=== PATIENT | female | born 1935 | race Caucasian/White ===

== ENCOUNTER 2021-03-17 10:21 | Inpatient (IN) ==
[2021-03-17 16:15] LABS: Basophils # 0.1 K/mcL (0.0-0.2); Basophils % 0.9 %; Eosinophils # 0.1 K/mcL (0.0-0.6); Eosinophils % 1.7 %; Hematocrit 40.8 % (35.3-44.9); Hemoglobin 13.3 g/dL (11.5-15.4); Immature Granulocytes % 0.5 % (0-4); Lymphocytes # 1.4 K/mcL (0.6-4.6); Lymphocytes % 18.2 %; Mean Corpuscular HGB Conc 32.6 g/dL (31.6-35.5); Mean Corpuscular Hemoglobin 30.9 pg (28.0-33.3); Mean Corpuscular Volume 94.9 fL (83.0-100.0); Mean Platelet Volume 9.1 fL (9.4-12.4); Monocytes # 0.7 K/mcL (0.0-1.3); Monocytes % 9.1 %; Neutrophils # 5.3 K/mcL (1.6-8.9); Platelet Count 309 K/mcL (140-400); Red Cell Distribution Width 12.1 % (11.5-14.5); Segmented Neutrophils % 69.6 %; White Blood Count 7.6 K/mcL (4.3-11.1)
[2021-03-17 16:25] LABS: Alanine Aminotransferase 11 Units/L (7-52); Albumin/Globulin Ratio 1.2 (1.1-2.2); Alkaline Phosphatase 45 Units/L (34-104); Aspartate Amino Transferase 12 Units/L (13-39); BUN/Creatinine Ratio 15 (6-26); Bilirubin,Direct 0.1 mg/dL (0.0-0.2); Bilirubin,Indirect 0.4 mg/dL (0.0-1.0); Bilirubin,Total 0.5 mg/dL (0.3-1.0); Blood Urea Nitrogen 10 mg/dL (8-23); Calcium 9.4 mg/dL (8.6-10.3); Carbon Dioxide 29 mEq/L (23-29); Chloride 91 mEq/L (98-107); Globulin 3.3 g/dL (2.4-3.5); Glucose 171 mg/dL (70-105); Osmolality,Calculated 277 (280-300); Potassium 4.4 mEq/L (3.5-5.1); Sodium 132 mEq/L (136-145); Total Protein 7.3 g/dL (6.4-8.9); eGFR For African Americans > 60 (> 60); eGFR For Non-African Americans > 60 (> 60)
[2021-03-17 16:33] LABS: Troponin I < 0.03 ng/mL (< 0.04)
[2021-03-17 16:49] LABS: Lipase 15 Units/L (11-82)
[2021-03-17] MEDS ORDERED: Azithromycin 250 MG TABLET PO ONE (17:58)
[2021-03-17] MEDS ORDERED: cefTRIAXone 1,000 MG in Water for inj. (sterile) 10 ML IVP ONE (17:58)
[2021-03-17 18:43] LABS: Bacteria,Urine Moderate per hpf (None-Few); Bilirubin,Urine Negative (Negative); Blood,Urine Negative (Negative); Clarity,Urine Clear (Clear); Color,Urine Yellow (Yellow); Glucose,Urine (UA) Normal (Normal); Ketones,Urine 40 mg/dL (Negative); Leukocyte Esterase,Urine Negative (Negative); Mucus,Urine Few per lpf (None-Few); Nitrite,Urine Negative (Negative); Protein,Urine 30 mg/dL (Neg-Trace); RBC,Urine 0-3 per hpf (0-3); Specific Gravity,Urine 1.024 (1.010-1.025); Squamous Epithelial Cell,Urine Few per hpf (None-Few); Urobilinogen,Urine Normal (Normal); WBC,Urine 0-3 per hpf (0-3)
[2021-03-17] MEDS ORDERED: Furosemide 40 MG/4 ML VIAL IVP ONE (21:44)
[2021-03-17] MEDS ORDERED: Isovue-370 500 ML BOTTLE IVP ONE (23:09)
[2021-03-18] MEDS ORDERED: Naloxone 0.4 MG/ML INJ IVP PRN (00:02)
[2021-03-18] MEDS ORDERED: Ondansetron 4 MG/2 ML VIAL IVP PRN (02:09)
[2021-03-18] MEDS ORDERED: *HR* Metoprolol 5 MG/5 ML VIAL IVP ONE (02:35)
[2021-03-18 06:06] LABS: Hematocrit 39.7 % (35.3-44.9); Hemoglobin 13.2 g/dL (11.5-15.4); Mean Corpuscular HGB Conc 33.2 g/dL (31.6-35.5); Mean Corpuscular Hemoglobin 30.9 pg (28.0-33.3); Platelet Count 332 K/mcL (140-400); Red Blood Count 4.27 M/mcL (3.82-4.97); Red Cell Distribution Width 11.9 % (11.5-14.5); White Blood Count 8.1 K/mcL (4.3-11.1)
[2021-03-18 06:31] LABS: BUN/Creatinine Ratio 15 (6-26); Blood Urea Nitrogen 12 mg/dL (8-23); Calcium 9.4 mg/dL (8.6-10.3); Carbon Dioxide 27 mEq/L (23-29); Chloride 92 mEq/L (98-107); Glucose 198 mg/dL (70-105); Osmolality,Calculated 279 (280-300); Potassium 4.2 mEq/L (3.5-5.1); Sodium 132 mEq/L (136-145); eGFR For African Americans > 60 (> 60); eGFR For Non-African Americans > 60 (> 60)
[2021-03-18] MEDS ORDERED: Pantoprazole 40 MG VIAL IVP SCH (09:00)
[2021-03-18] MEDS ORDERED: Lidocaine -MPF 2% 5 ML VIAL ONE (09:51)
[2021-03-18] MEDS ORDERED: *HR* Propofol 200 MG/20 ML VIAL IVP ONE (09:51)
[2021-03-18] MEDS: Gabapentin 300 MG CAPSULE PO SCH (20:03)
[2021-03-18] MEDS: Primidone 50 MG TABLET PO SCH (20:03)
[2021-03-18] MEDS: lisinopriL 20 MG TABLET PO SCH (20:03)
[2021-03-18] MEDS ORDERED: Acetaminophen 325 MG TABLET PO ONE ×2 (20:03→22:20)
[2021-03-18] MEDS: *HR* Heparin 5,000 UNIT/ML VIAL SQ SCH ×2 (20:06→20:07)
[2021-03-19 05:30] LABS: Mean Corpuscular HGB Conc 31.9 g/dL (31.6-35.5); Mean Corpuscular Hemoglobin 30.4 pg (28.0-33.3); Mean Corpuscular Volume 95.2 fL (83.0-100.0); Mean Platelet Volume 8.7 fL (9.4-12.4); Platelet Count 301 K/mcL (140-400); Red Blood Count 3.78 M/mcL (3.82-4.97); Red Cell Distribution Width 12.2 % (11.5-14.5); White Blood Count 6.9 K/mcL (4.3-11.1)
[2021-03-19 05:32] LABS: Hemoglobin 11.5 g/dL (11.5-15.4)
[2021-03-19 05:51] LABS: BUN/Creatinine Ratio 20 (6-26); Blood Urea Nitrogen 17 mg/dL (8-23); Carbon Dioxide 31 mEq/L (23-29); Chloride 95 mEq/L (98-107); Glucose 126 mg/dL (70-105); Osmolality,Calculated 279 (280-300); Potassium 3.5 mEq/L (3.5-5.1); Sodium 133 mEq/L (136-145); eGFR For African Americans > 60 (> 60); eGFR For Non-African Americans > 60 (> 60)
[2021-03-19] MEDS: *HR* Heparin 5,000 UNIT/ML VIAL SQ SCH ×3 (06:19→20:41)
[2021-03-19] MEDS ORDERED: Furosemide 20 MG TABLET PO SCH (09:00)
[2021-03-19] MEDS: lisinopriL 20 MG TABLET PO SCH ×2 (11:26→20:41)
[2021-03-19] MEDS: amLODIPine 5 MG TABLET PO SCH (11:27)
[2021-03-19] MEDS ORDERED: Acetaminophen 325 MG TABLET PO PRN (11:53)
[2021-03-19] MEDS: Primidone 50 MG TABLET PO SCH (20:41)
[2021-03-19] MEDS: Gabapentin 300 MG CAPSULE PO SCH (20:41)
[2021-03-20 02:35] LABS: Hematocrit 37.7 % (35.3-44.9); Hemoglobin 12.1 g/dL (11.5-15.4); Mean Corpuscular HGB Conc 32.1 g/dL (31.6-35.5); Mean Corpuscular Hemoglobin 30.7 pg (28.0-33.3); Mean Corpuscular Volume 95.7 fL (83.0-100.0); Mean Platelet Volume 8.7 fL (9.4-12.4); Platelet Count 308 K/mcL (140-400); Red Blood Count 3.94 M/mcL (3.82-4.97); White Blood Count 7.8 K/mcL (4.3-11.1)
[2021-03-20 02:45] LABS: BUN/Creatinine Ratio 27 (6-26); Blood Urea Nitrogen 19 mg/dL (8-23); Carbon Dioxide 28 mEq/L (23-29); Chloride 91 mEq/L (98-107); Glucose 124 mg/dL (70-105); Osmolality,Calculated 280 (280-300); Potassium 3.6 mEq/L (3.5-5.1); Sodium 133 mEq/L (136-145); eGFR For African Americans > 60 (> 60); eGFR For Non-African Americans > 60 (> 60)
[2021-03-20] MEDS: *HR* Heparin 5,000 UNIT/ML VIAL SQ SCH ×3 (05:51→21:28)
[2021-03-20] MEDS ORDERED: *HR* FentaNYL (PF) 100 MCG/2 ML VIAL ONE ×2 (08:32→10:20)
[2021-03-20] MEDS ORDERED: *HR* Propofol 200 MG/20 ML VIAL IVP ONE (08:32)
[2021-03-20] MEDS ORDERED: CefOXitin 2,000 MG VIAL ONE (08:43)
[2021-03-20] MEDS ORDERED: Ondansetron 4 MG/2 ML VIAL ONE ×2 (09:00→12:29)
[2021-03-20] MEDS: Ringers Solution, Lactated 1,000 ML IVC ONE ×2 (09:00→11:25)
[2021-03-20] MEDS ORDERED: cefOXitin 2,000 MG in Water for inj. (sterile) 20 ML IVP ONE (09:00)
[2021-03-20] MEDS ORDERED: *HR* Rocuronium Bromide 50 MG/5 ML VIAL ONE ×2 (09:00→10:01)
[2021-03-20] MEDS ORDERED: Lidocaine -MPF 2% 2 ML VIAL ONE (09:00)
[2021-03-20] MEDS ORDERED: *HR* Succinylcholine 200 MG/10 ML VIAL IVP ONE (09:00)
[2021-03-20] MEDS: Ringers Solution, Lactated 1,000 ML IVC SCH ×3 (09:10→12:15)
[2021-03-20] MEDS ORDERED: EPHEDrine 50 MG/ML VIAL ONE (09:15)
[2021-03-20] MEDS ORDERED: Albumin Human 5% 12.5 GM/250 ML IV.SOLN ONE ×2 (09:21→10:14)
[2021-03-20] MEDS ORDERED: *HR* Phenylephrine 10 MG/ML VIAL ONE (10:38)
[2021-03-20] MEDS ORDERED: Sugammadex Sodium 200 MG/2 ML VIAL IV ONE (10:52)
[2021-03-20] MEDS ORDERED: Lidocaine HCL 4 ML Topical Solution (Laryng-O-Jet Kit Sterile Pak) TP ONE (10:53)
[2021-03-20] MEDS ORDERED: Furosemide 40 MG/4 ML VIAL ONE (12:01)
[2021-03-20] MEDS: amLODIPine 5 MG TABLET PO SCH (12:13)
[2021-03-20] MEDS: lisinopriL 20 MG TABLET PO SCH ×2 (12:14→20:22)
[2021-03-20] MEDS ORDERED: Ondansetron 4 MG/2 ML VIAL IVP ONE (12:28)
[2021-03-20] MEDS ORDERED: *HR* HYDROmorphone PF 0.5 MG/0.5 ML SYRINGE IVP PRN (12:32)
[2021-03-20] MEDS ORDERED: Ketorolac 15 MG/ML VIAL IVP ONE (12:53)
[2021-03-20] MEDS ORDERED: Naloxone 0.4 MG/ML INJ IVP PRN (13:39)
[2021-03-20] MEDS: *HR* Promethazine 25 MG/ML VIAL IM PRN ×2 (15:35→21:58)
[2021-03-20] MEDS: Acetaminophen IV 1,000 MG/100 ML BAG IVPB SCH ×2 (18:58→23:52)
[2021-03-20] MEDS: Ondansetron 4 MG/2 ML VIAL IVP PRN (18:59)
[2021-03-20] MEDS: 0.9 % Sodium Chloride 1,000 ML IVC SCH (19:44)
[2021-03-20] MEDS: Primidone 50 MG TABLET PO SCH (20:22)
[2021-03-20] MEDS: Gabapentin 300 MG CAPSULE PO SCH (20:23)
[2021-03-21] MEDS: *HR* Heparin 5,000 UNIT/ML VIAL SQ SCH ×3 (05:59→22:14)
[2021-03-21] MEDS: Acetaminophen IV 1,000 MG/100 ML BAG IVPB SCH ×3 (05:59→18:45)
[2021-03-21 06:38] LABS: Hematocrit 37.4 % (35.3-44.9); Mean Corpuscular HGB Conc 32.1 g/dL (31.6-35.5); Mean Corpuscular Hemoglobin 30.8 pg (28.0-33.3); Mean Corpuscular Volume 96.1 fL (83.0-100.0); Mean Platelet Volume 8.8 fL (9.4-12.4); Platelet Count 312 K/mcL (140-400); Red Blood Count 3.89 M/mcL (3.82-4.97); Red Cell Distribution Width 12.2 % (11.5-14.5); White Blood Count 10.3 K/mcL (4.3-11.1)
[2021-03-21] MEDS: 0.9 % Sodium Chloride 1,000 ML IVC SCH (06:46)
[2021-03-21 06:51] LABS: BUN/Creatinine Ratio 26 (6-26); Blood Urea Nitrogen 20 mg/dL (8-23); Calcium 8.9 mg/dL (8.6-10.3); Carbon Dioxide 27 mEq/L (23-29); Chloride 98 mEq/L (98-107); Glucose 122 mg/dL (70-105); Osmolality,Calculated 284 (280-300); Sodium 135 mEq/L (136-145); eGFR For African Americans > 60 (> 60); eGFR For Non-African Americans > 60 (> 60)
[2021-03-21] MEDS: amLODIPine 5 MG TABLET PO SCH (10:43)
[2021-03-21] MEDS: lisinopriL 20 MG TABLET PO SCH ×2 (10:45→20:35)
[2021-03-21] MEDS: Ondansetron 4 MG/2 ML VIAL IVP PRN (11:25)
[2021-03-21] MEDS ORDERED: cefTRIAXone 1,000 MG in Water for inj. (sterile) 10 ML IVP SCH (13:00)
[2021-03-21] MEDS ORDERED: Azithromycin 500 MG in 0.9 % Sodium Chloride 250 ML IVPB SCH (13:00)
[2021-03-21] MEDS: *HR* Promethazine 25 MG/ML VIAL IM PRN (13:22)
[2021-03-21] MEDS ORDERED: Benzonatate 100 MG CAPSULE PO PRN (14:36)
[2021-03-21] MEDS: Piperacillin/Tazobactam 3.375 GM in 0.9 % Sodium Chloride Mini Bag 100 ML IVPB SCH ×2 (15:00→22:14)
[2021-03-21] MEDS: Gabapentin 300 MG CAPSULE PO SCH (20:35)
[2021-03-21] MEDS: Primidone 50 MG TABLET PO SCH (20:35)
[2021-03-22] MEDS: Acetaminophen IV 1,000 MG/100 ML BAG IVPB SCH ×4 (00:43→21:44)
[2021-03-22] MEDS: *HR* Heparin 5,000 UNIT/ML VIAL SQ SCH ×3 (06:05→21:44)
[2021-03-22] MEDS: Ondansetron 4 MG/2 ML VIAL IVP PRN (06:52)
[2021-03-22] MEDS: Piperacillin/Tazobactam 3.375 GM in 0.9 % Sodium Chloride Mini Bag 100 ML IVPB SCH ×2 (06:57→16:30)
[2021-03-22 07:32] LABS: Hematocrit 35.2 % (35.3-44.9); Hemoglobin 11.5 g/dL (11.5-15.4); Mean Corpuscular HGB Conc 32.7 g/dL (31.6-35.5); Mean Corpuscular Hemoglobin 31.4 pg (28.0-33.3); Mean Corpuscular Volume 96.2 fL (83.0-100.0); Mean Platelet Volume 9.3 fL (9.4-12.4); Platelet Count 311 K/mcL (140-400); Red Blood Count 3.66 M/mcL (3.82-4.97); Red Cell Distribution Width 12.3 % (11.5-14.5); White Blood Count 13.2 K/mcL (4.3-11.1)
[2021-03-22 07:50] LABS: BUN/Creatinine Ratio 17 (6-26); Blood Urea Nitrogen 11 mg/dL (8-23); Calcium 8.8 mg/dL (8.6-10.3); Carbon Dioxide 30 mEq/L (23-29); Chloride 99 mEq/L (98-107); Glucose 148 mg/dL (70-105); Osmolality,Calculated 282 (280-300); Potassium 3.5 mEq/L (3.5-5.1); Sodium 135 mEq/L (136-145); eGFR For African Americans > 60 (> 60); eGFR For Non-African Americans > 60 (> 60)
[2021-03-22] MEDS: amLODIPine 5 MG TABLET PO SCH (09:16)
[2021-03-22] MEDS: lisinopriL 20 MG TABLET PO SCH ×2 (09:16→21:43)
[2021-03-22] MEDS ORDERED: *HR* Metoprolol 5 MG/5 ML VIAL IVP ONE (18:14)
[2021-03-22] MEDS: Gabapentin 300 MG CAPSULE PO SCH (21:43)
[2021-03-22] MEDS: Primidone 50 MG TABLET PO SCH (21:43)
[2021-03-23] MEDS: Piperacillin/Tazobactam 3.375 GM in 0.9 % Sodium Chloride Mini Bag 100 ML IVPB SCH ×2 (00:05→06:20)
[2021-03-23] MEDS: Acetaminophen IV 1,000 MG/100 ML BAG IVPB SCH ×2 (03:36→05:57)
[2021-03-23 04:39] LABS: Hematocrit 33.8 % (35.3-44.9); Hemoglobin 10.8 g/dL (11.5-15.4); Mean Corpuscular Hemoglobin 30.7 pg (28.0-33.3); Mean Platelet Volume 9.2 fL (9.4-12.4); Platelet Count 315 K/mcL (140-400); Red Blood Count 3.52 M/mcL (3.82-4.97); Red Cell Distribution Width 12.3 % (11.5-14.5); White Blood Count 13.3 K/mcL (4.3-11.1)
[2021-03-23 04:55] LABS: BUN/Creatinine Ratio 16 (6-26); Blood Urea Nitrogen 9 mg/dL (8-23); Calcium 8.5 mg/dL (8.6-10.3); Carbon Dioxide 29 mEq/L (23-29); Chloride 97 mEq/L (98-107); Glucose 151 mg/dL (70-105); Osmolality,Calculated 280 (280-300); Potassium 3.3 mEq/L (3.5-5.1); Sodium 134 mEq/L (136-145); eGFR For African Americans > 60 (> 60); eGFR For Non-African Americans > 60 (> 60)
[2021-03-23] MEDS ORDERED: Piperacillin/Tazobactam 3.375 GM VIAL ONE (06:02)
[2021-03-23] MEDS: *HR* Heparin 5,000 UNIT/ML VIAL SQ SCH (06:04)
[2021-03-23 06:46] VITALS: BP 149/86
[2021-03-23] MEDS: amLODIPine 5 MG TABLET PO SCH (08:33)
[2021-03-23] MEDS: lisinopriL 20 MG TABLET PO SCH (08:34)
[2021-03-23] MEDS ORDERED: Furosemide 20 MG TABLET PO SCH (09:00)
== END 2021-03-23 13:01 | DRG 326 ==
LOC: 3NENU 10:21 → EMEROOARM 10:21 → SUATTDRO 23:26 → 3NENU 03-18 00:48
PROVIDERS: ADMIT Internal Medicine; ATTEND Family Medicine
PROC: ENDOEBX (2021-03-18 10:00)